=== PATIENT | female | born 1960 | race Caucasian/White ===

== ENCOUNTER 2017-04-16 16:58 | Emergency (ER) | payer SELFPAY ==
[2017-04-16 17:06] VITALS: BP 151/96
--- NOTE | 2017-04-16 18:47 | EDM.PDOC ---
ED HPI GENERAL MEDICAL PROBLEM - General Chief Complaint: Lower Extremity Injury/Pain Stated Complaint: LT ANKLE INJURY Time Seen by Provider: 04/16/17 17:47 Source of Information: Reports: Patient History Limitations: Reports: No Limitations - History of Present Illness INITIAL COMMENTS - FREE TEXT/NARRATIVE: 56 year old female present for evaluation and treatment of an injury to the left ankle. Patient reports she fell onto an inverted left ankle last night. She is not able to bear weight on the ankle. Reports pain, bruising and swelling to the left ankle. Reports decreased range of motion due to pain. No numbness or tingling. She has been icing, resting, and using OTC pain relievers for her symptoms. Left Ankle Pain Score (Numeric/FACES): 9 - Related Data Allergies Allergy/AdvReac Type Severity Reaction Status Date / Time diphenhydramine HCl Allergy Nervousness Verified 04/16/17 17:06 [From Benadryl] metoclopramide HCl Allergy throat Verified 04/16/17 17:06 [From Reglan] swelling Past Medical History - Past Health History Medical/Surgical History: Denies Medical/Surgical History - Past Surgical History Female Surgical History: Reports: Hysterectomy Social & Family History - Tobacco Use Smoking Status *Q: Never Smoker Second Hand Smoke Exposure: No - Alcohol Use Days Per Week of Alcohol Use: 4 Number of Drinks Per Day: 1 Total Drinks Per Week: 4 - Recreational Drug Use Recreational Drug Use: No Review of Systems - Review of Systems Review Of Systems: See Below Musculoskeletal: Reports: Joint Pain (left ankle), Joint Swelling (left ankle) Skin: Reports: Bruising (left ankle). Denies: Wound Neurological: Reports: Difficulty Walking. Denies: Numbness, Tingling ED EXAM, GENERAL - Physical Exam Exam: See Below Exam Limited By: No Limitations General Appearance: Alert, WD/WN, No Apparent Distress Respiratory/Chest: No Respiratory Distress Cardiovascular: Normal Peripheral Pulses, Regular Rate, Rhythm Peripheral Pulses: 3+: Posterior Tibial (L), Posterior Tibial (R), Dorsalis Pedis (L), Dorsalis Pedis (R) Extremities: Joint Swelling (left lateral malleolus), Limited Range of Motion ( pain with inversion, eversion, dorsiflexion and plantarflexion), Other ( tenderness to palpation of the left ankle both proximal and distal to the lateral malleolus) Neurological: Alert, Oriented, Normal Cognition Psychiatric: Normal Affect, Normal Mood Skin Exam: Warm, Dry, Ecchymosis (approximately 7cm in diameter ecchymosis to the left lateral ankle, roximal to the malleolus) Course - Vital Signs Last Recorded V/S: Last Vital Signs Temp 37.2 C 04/16/17 17:03 Pulse 94 04/16/17 17:03 Resp 16 04/16/17 17:03 BP 151/96 H 04/16/17 17:03 Pulse Ox 96 04/16/17 17:03 - Radiology Interpretation Free Text/Narrative:: left ankle xray shows soft tissue swelling, no acute fractures or dislocations - Re-Assessments/Exams Free Text/Narrative Re-Assessment/Exam: 04/16/17 18:41 I reviewed the xrays with the patient. She does not have insurance and is very concerned about costs. She has crutches at home. Decided to treat conservatively and if the ankle does not heel she will follow up with family med. Discharge instructions as documented. Departure - Departure Time of Disposition: 18:47 Disposition: Home, Self-Care 01 Condition: Fair Clinical Impression: Ankle sprain Qualifiers: Encounter type: initial encounter Involved ligament of ankle: calcaneofibular ligament Laterality: left Qualified Code(s): S93.412A - Sprain of calcaneofibular ligament of left ankle, initial encounter - Discharge Information Instructions: Ankle Sprain, [id number] Referrals: PCP,None [Primary Care Provider] - Forms: ED Department Discharge Additional Instructions: Rx for norco 5-325mg tabs 1-2 tabs PO every 4-6 hours prn pain given through instymeds. Ice the ankle 3 to 5 times a day for 10-15 minutes. Use the crutches and an Yoel bandage. I recommend you off the ankle for the next week. Follow up with family medicine if your symptoms have not improved in one week. Please call [phone] to schedule the provider at the same [facility]. Recommend Jennie Sung. [id number] ibuprofen as needed for pain relief. [place] 1-2 tabs every 4-6 hours as needed for severe pain not relieved by ibuprofen. Do not drive or operate machinery within 12 hours of taking the [place]. [place] can be habit- forming, recommend you take as few these as needed to control your pain. Return to the ER if your symptoms change or worsen.
--- NOTE | 2017-04-17 10:53 | CR ---
Left ankle: Four views of the left ankle were obtained. Comparison: No previous ankle study. Ankle mortise is symmetric. Small plantar spur is seen. Minimal calcification within the distal Achilles tendon is seen near the attachment to the calcaneus. No acute fracture, dislocation or other bony abnormality is seen. Mild soft tissue swelling is identified. Impression: 1. Soft tissue swelling. Nothing acute is otherwise appreciated. 2. Incidental calcaneal spurs. Diagnostic code #2
== END 2017-04-16 18:55 | disposition home or self-care (01) ==
LOC: JD.ED 16:58
DX: S93.412A Sprain of calcaneofibular ligament of left ankle, initial encounter (principal); Z90.710 Acquired absence of both cervix and uterus; Z88.8 Allergy status to other drugs, medicaments and biological substances; W01.0XXA Fall on same level from slipping, tripping and stumbling without subsequent striking against object, initial encounter
CPT/HCPCS: 73610-26-LT; 73610-LT; 99282; 99284

== ENCOUNTER 2017-06-15 12:34 | Emergency (ER) | payer SELFPAY ==
[2017-06-15 12:43] VITALS: BP 97/66
[2017-06-15] MEDS ORDERED: Ketorolac 10 MG Tab PO ONE (13:22)
--- NOTE | 2017-06-15 13:23 | EDM.PDOC ---
ED HPI GENERAL MEDICAL PROBLEM - General Chief Complaint: Gastrointestinal Problem Stated Complaint: Abdominal pain Time Seen by Provider: 06/15/17 13:00 Source of Information: Reports: Patient, RN Notes Reviewed History Limitations: Reports: No Limitations - History of Present Illness INITIAL COMMENTS - FREE TEXT/NARRATIVE: 56 year old female presents to the ED with complaints of bloating and left sided abdominal pain. She has had the symptoms for approximately 2 months. The symptoms have worsened over the past couple days. She has a history of ulcerative colitis and diverticulitis. She denies nausea or vomiting. She reports that her bowel movements are small and thin. Her last "good" bowel movement was a few days ago. Her appetite is fair. She has seen a regional engineer in the past but is not currently established with GI. Her PCP was Dr. Carter but he has since left and she has not established with anyone new. Abdomen Pain Score (Numeric/FACES): 6 - Related Data Allergies Allergy/AdvReac Type Severity Reaction Status Date / Time diphenhydramine HCl Allergy Nervousness Verified 06/15/17 12:43 [From Benadryl] metoclopramide HCl Allergy throat Verified 06/15/17 12:43 [From Reglan] swelling Home Meds: Home Meds Ciprofloxacin [IJD: Ciprofloxacin HCl] 500 mg PO BID #14 tab 06/15/17 [Rx] Clindamycin HCl 300 mg PO Q6H #28 capsule 06/15/17 [Rx] Dicyclomine [Bentyl] 20 mg PO ASDIRECTED PRN 06/15/17 [History] predniSONE [Prednisone] See Taper PO DAILY #30 tablet 06/15/17 [Rx] traMADol [Ultram] 50 mg PO Q6H PRN #10 tablet 06/15/17 [Rx] Past Medical History - Past Health History Medical/Surgical History: Denies Medical/Surgical History Gastrointestinal History: Reports: Other (See Below) Other Gastrointestinal History: Ulcerative colitis - Past Surgical History Female Surgical History: Reports: Hysterectomy Social & Family History - Tobacco Use Smoking Status *Q: Former Smoker Used Tobacco, but Quit: Yes Month Tobacco Last Used: 20 years ago Second Hand Smoke Exposure: No - Caffeine Use Caffeine Use: Reports: Coffee - Alcohol Use Days Per Week of Alcohol Use: 4 Number of Drinks Per Day: 1 Total Drinks Per Week: 4 - Recreational Drug Use Recreational Drug Use: No ED ROS GENERAL - Review of Systems Review Of Systems: See Below Constitutional: Reports: Chills. Denies: Fever, Diaphoresis Respiratory: Reports: No Symptoms. Denies: Shortness of Breath Cardiovascular: Reports: No Symptoms. Denies: Chest Pain GI/Abdominal: Reports: Abdominal Pain, Constipation. Denies: Black Stool, Bloody Stool, Diarrhea, Nausea, Vomiting : Reports: No Symptoms. Denies: Dysuria, Flank Pain, Frequency ED EXAM, GI/ABD - Physical Exam Exam: See Below Exam Limited By: No Limitations General Appearance: Alert, No Apparent Distress, Obese Respiratory/Chest: No Respiratory Distress, Lungs Clear, Normal Breath Sounds, No Accessory Muscle Use, Chest Non-Tender Cardiovascular: Normal Peripheral Pulses, Regular Rate, Rhythm, No Murmur GI/Abdominal Exam: Normal Bowel Sounds, Soft, No Organomegaly, Distended (mild ) , Tender (LLQ and LUQ. ). No: Guarding, Rigid, Rebound, Mass Neurological: Alert, Oriented, Normal Cognition Skin Exam: Warm, Dry, Intact Course - Vital Signs Last Recorded V/S: Last Vital Signs Temp 97 F 06/15/17 12:40 Pulse 93 06/15/17 12:40 Resp 19 06/15/17 12:40 BP 97/66 06/15/17 12:40 Pulse Ox 96 06/15/17 12:40 - Orders/Labs/Meds Labs: Laboratory Tests 06/15/17 06/15/17 06/15/17 Range/Units 13:33 13:33 14:45 WBC 10.27 H (3.98-10.04) K/mm3 RBC 4.58 (3.98-5.22) M/mm3 Hgb 13.9 (11.2-15.7) gm/L Hct 41.7 (34.1-44.9) % MCV 91.0 (79.4-94.8) fl MCH 30.3 (25.6-32.2) pg MCHC 33.3 (32.2-35.5) g/dl RDW Std Deviation 47.0 H (36.4-46.3) fL Plt Count 178 L (182-369) K/mm3 MPV 11.5 (9.4-12.3) fl Neutrophils % (Manual) 82 H (40-60) % Band Neutrophils % 0 (0-10) % Lymphocytes % (Manual) 13 L (20-40) % Atypical Lymphs % 0 % Monocytes % (Manual) 3 (2-10) % Eosinophils % (Manual) 2 (0.7-5.8) % Basophils % (Manual) 0 L (0.1-1.2) Platelet Estimate Adequate RBC Morph Comment Normal Sodium 136 (136-145) mEq/L Potassium 3.8 (3.5-5.1) mEq/L Chloride 102 (98-107) mEq/L Carbon Dioxide 29 (21-32) mEq/L Anion Gap 8.8 (5-15) BUN 12 (7-18) mg/dL Creatinine 0.8 (0.55-1.02) mg/dL Est Cr Clr Drug Dosing 67.80 mL/min Estimated GFR (MDRD) > 60 (>60) mL/min BUN/Creatinine Ratio 15.0 (14-18) Glucose 111 H (74-106) mg/dL Calcium 9.0 (8.5-10.1) mg/dL Total Bilirubin 0.7 (0.2-1.0) mg/dL AST 10 L (15-37) U/L ALT 27 (14-59) U/L Alkaline Phosphatase 82 (46-116) U/L C-Reactive Protein 20.2 H* (<1.0) mg/dL Total Protein 7.6 (6.4-8.2) g/dl Albumin 3.6 (3.4-5.0) g/dl Globulin 4.0 gm/dL Albumin/Globulin Ratio 0.9 L (1-2) Urine Color Yellow (Yellow) Urine Appearance Clear (Clear) Urine pH 6.0 (5.0-8.0) Ur Specific Coin 1.020 (1.005-1.030) Urine Protein Negative (Negative) Urine Glucose (UA) Negative (Negative) Urine Ketones Negative (Negative) Urine Occult Blood Trace-lysed H (Negative) Urine Nitrite Negative (Negative) Urine Bilirubin Negative (Negative) Urine Urobilinogen 0.2 (0.2-1.0) Ur Leukocyte Esterase Negative (Negative) Urine RBC 0-5 (0-5) /hpf Urine WBC 0-5 (0-5) /hpf Ur Epithelial Cells 0-5 (0-5) /hpf Urine Bacteria Few (FEW) /hpf Urine Mucus Not seen (FEW) /hpf Meds: Medications Discontinued Medications Generic Name Dose Route Start Last Admin Trade Name Ragini PRN Reason Stop Dose Admin Acetaminophen 975 mg 06/15/17 14:48 06/15/17 14:52 Tylenol PO 06/15/17 14:49 975 mg NOW ONE Administration Ketorolac Tromethamine 10 mg 06/15/17 13:22 06/15/17 13:29 Toradol PO 06/15/17 13:23 10 mg ONETIME ONE Administration - Re-Assessments/Exams Free Text/Narrative Re-Assessment/Exam: Patient's history of diverticulitis AND ulcerative colitis makes diagnosis difficult. I offered CT scan of the abdomen but patient declined. She does not have insurance and is concerned about cost. We discussed risk and benefits. Shared decision making utilized and patient would prefer to avoid CT scan at this time. She is agreeable to labs. Offered IV for symptom management but she also refused IV. Will treat with Toradol PO for pain. The toradol offered significant improvement in pain. CBC came back with mild elevated WBC with no bands. CMP is normal. CRP is elevated at 20. UA negative. Discussed with Dr. Evans, he agrees with treatment with prednisone and antibiotics to treat both UC and diverticulitis. Clinically the patient appears to have diverticulitis but cannot be certain without CT. The patient says she does not tolerated Flagyl as it causes severe diarrhea. Dr. evans recommends Clindamycin in the place of Flagyl. Patient will be discharged. She was educated on return precautions. Will refer to Dr. Lagos and instructed to f/u next week for recheck. She was encouraged to return to ER with any new or worsening symptoms. Departure - Departure Time of Disposition: 15:59 Disposition: Home, Self-Care 01 Condition: Good Clinical Impression: Abdominal pain, History of ulcerative colitis, Hx of diverticulitis of colon - Discharge Information Prescriptions: Ciprofloxacin [IJD: Ciprofloxacin HCl] 500 mg PO BID #14 tab Clindamycin HCl 300 mg PO Q6H #28 capsule predniSONE [Prednisone] See Taper PO DAILY #30 tablet traMADol [Ultram] 50 mg PO Q6H PRN #10 tablet PRN Reason: Pain (Moderate 4-6) Instructions: Ulcerative Colitis, Adult Referrals: Aayush Lagos [Physician] - Forms: ED Department Discharge Additional Instructions: Follow-up with Dr. Lagos next week. Call [phone] to schedule Return to ER with new or worsening symptoms Medications: Prednisone taper as prescribed Tramadol 1 tab every 6 hours as needed for pain Ciprofloxacin 500mg twice a day for 7 days Clindamycin 300mg every 6 hours for 7 days
[2017-06-15] MEDS ORDERED: Acetaminophen 325 MG Tab PO ONE (14:48)
== END 2017-06-15 16:15 | disposition home or self-care (01) ==
LOC: JD.ED 12:34
DX: R10.9 Unspecified abdominal pain (principal); Z87.19 Personal history of other diseases of the digestive system; Z88.6 Allergy status to analgesic agent; Z88.8 Allergy status to other drugs, medicaments and biological substances; Z79.899 Other long term (current) drug therapy; Z90.710 Acquired absence of both cervix and uterus; Z87.891 Personal history of nicotine dependence
CPT/HCPCS: 36415; 80053; 81001; 85025; 86140; 99284; A9270; 99283

== ENCOUNTER 2021-06-19 02:47 | Emergency (ER) | payer SELFPAY ==
[2021-06-19] MEDS ORDERED: Sodium Chloride 0.9% 1,000 ML IV ONE (03:12)
[2021-06-19] MEDS ORDERED: predniSONE 20 MG Tab PO ONE (03:12)
[2021-06-19] MEDS ORDERED: Ketorolac 30 MG/ML SDV IVPUSH ONE (03:12)
[2021-06-19] MEDS ORDERED: Albuterol/Ipratropium 3.0-0.5 MG/3 ML Neb Soln NEB ONE (03:12)
[2021-06-19] MEDS ORDERED: Azithromycin 250 MG Tab PO ONE (03:12)
[2021-06-19] MEDS ORDERED: EPINEPHrine 1 MG/ML SDV IM PRN (04:33)
[2021-06-19] MEDS ORDERED: diphenhydrAMINE 50 MG/ML SDV IVPUSH PRN (04:33)
[2021-06-19] MEDS ORDERED: Famotidine 20 MG/2 ML SDV IVPUSH PRN (04:33)
[2021-06-19] MEDS ORDERED: methylPREDNISolone Sodium Succinate 125 MG/2 ML SDV IVPUSH PRN (04:33)
[2021-06-19] MEDS ORDERED: Sodium Chloride 0.9% 10 ML Syringe FLUSH SCH (04:45)
--- NOTE | 2021-06-19 05:24 | EDM.PDOC ---
ED HPI GENERAL MEDICAL PROBLEM - General Chief Complaint: Respiratory Problem Stated Complaint: SOB/CONGESTION/FEVER Time Seen by Provider: 06/19/21 02:51 Source of Information: Reports: Patient History Limitations: Reports: No Limitations - History of Present Illness INITIAL COMMENTS - FREE TEXT/NARRATIVE: Patient is a 60-year-old female who is complaining of having fever and chills, dry mouth, nonproductive cough and feeling ill for the past week. Patient has change in her sense of taste and smell. She is feeling increasingly tired and is starting to have myalgias. Patient is not vaccinated against Covid. She is not a cigarette smoker. She denies any vomiting or diarrhea. She is complaining of having a frontal headache. She is not taking anything for symptoms today. Denies any dysuria or hematuria. Denies any bloody or tarry stools. Duration: Week(s): (1), Getting Worse Severity: Moderate Generalized Pain Score (Numeric/FACES): 9 - Related Data Allergies Allergy/AdvReac Type Severity Reaction Status Date / Time diphenhydramine HCl Allergy Nervousness Verified 06/19/21 02:56 [From Benadryl] metoclopramide HCl Allergy throat Verified 06/19/21 02:56 [From Reglan] swelling Home Meds: Home Meds Albuterol [Proventil Neb Soln] 0.63 mg NEB Q6H PRN #20 dose 06/19/21 [Rx] Azithromycin 250 mg PO DAILY #6 tablet 06/19/21 [Rx] Mesalamine 1.2 gm PO BID 06/19/21 [History] predniSONE [Prednisone] 20 mg PO DAILY #5 tablet 06/19/21 [Rx] Past Medical History - Past Health History Medical/Surgical History: Denies Medical/Surgical History Gastrointestinal History: Reports: Other (See Below) Other Gastrointestinal History: Ulcerative colitis, diverticulitis - Past Surgical History Female Surgical History: Reports: Hysterectomy Social & Family History - Tobacco Use Tobacco Use Status *Q: Never Tobacco User Second Hand Smoke Exposure: No - Caffeine Use Caffeine Use: Reports: Coffee - Recreational Drug Use Recreational Drug Use: No ED ROS GENERAL - Review of Systems Review Of Systems: Comprehensive ROS is negative, except as noted in HPI. Constitutional: Reports: Fever, Chills, Malaise, Fatigue, Decreased Appetite Respiratory: Reports: Shortness of Breath, Cough. Denies: Sputum Cardiovascular: Reports: No Symptoms GI/Abdominal: Reports: Anorexia : Reports: No Symptoms Musculoskeletal: Reports: Muscle Pain ED EXAM, GENERAL - Physical Exam Exam: See Below Exam Limited By: No Limitations General Appearance: Alert, Mild Distress Head: Normocephalic Neck: Normal Inspection, Supple Respiratory/Chest: No Respiratory Distress, Lungs Clear, Normal Breath Sounds, No Accessory Muscle Use Cardiovascular: Tachycardia GI/Abdominal: Normal Bowel Sounds, Soft, Non-Tender, No Distention Back Exam: Normal Inspection Extremities: Normal Inspection Neurological: Alert, Normal Cognition Psychiatric: Normal Affect Skin Exam: Warm, Dry Course - Vital Signs Text/Narrative:: Patient's lab work is unremarkable. She is positive for COVID-19. We have given her a dose of Regeneron here. I have started her on prednisone. She is also started on Zithromax. Chest x-ray shows no pneumonia. She is feeling better with albuterol DuoNeb treatment. She has a nebulizer at home and I will her albuterol for that. She has a home pulse ox and knows to return if she is having worsening symptoms or her her pulse ox is less than 90. Last Recorded V/S: Last Vital Signs Temp 98.1 F 06/19/21 02:55 Pulse 114 H 06/19/21 02:55 Resp 25 H 06/19/21 02:55 BP 177/125 H 06/19/21 02:55 Pulse Ox 91 L 06/19/21 03:21 - Orders/Labs/Meds Orders: Active Orders 24 hr Category Date Time Status RT Aerosol Therapy [RC] ASDIRECTED Care 06/19/21 03:14 Active Vital Signs [RC] Q15M Care 06/19/21 04:33 Active Chest 1V Frontal [CR] Stat Exams 06/19/21 03:12 Taken EPINEPHrine [Adrenalin] Med 06/19/21 04:33 Active 0.3 mg IM ONETIME PRN Famotidine [Pepcid] Med 06/19/21 04:33 Active 20 mg IVPUSH ONETIME PRN Sodium Chloride 0.9% [Saline Flush] Med 06/19/21 04:45 Active 30 ml FLUSH ASDIRECTED diphenhydrAMINE [Benadryl] Med 06/19/21 04:33 Active 50 mg IVPUSH ONETIME PRN methylPREDNISolone Sod Succ [Solu-MEDROL] Med 06/19/21 04:33 Active 125 mg IVPUSH ONETIME PRN Medication Orders Diphenhydramine HCl (Diphenhydramine 50 Mg/Ml Sdv) 50 mg IVPUSH ONETIME PRN PRN Reason: hypersensitivity reaction Epinephrine HCl (Epinephrine 1 Mg/Ml Sdv) 0.3 mg IM ONETIME PRN PRN Reason: hypersensitivity reaction Famotidine (Famotidine 20 Mg/2 Ml Sdv) 20 mg IVPUSH ONETIME PRN PRN Reason: hypersensitivity reaction Methylprednisolone Sodium Succinate (Methylprednisolone Sodium Succinate 125 Mg/2 Ml Sdv) 125 mg IVPUSH ONETIME PRN PRN Reason: hypersensitivity reaction Sodium Chloride (Sodium Chloride 0.9% 10 Ml Syringe) 30 ml FLUSH ASDIRECTED [facility] Labs: Laboratory Tests 06/19/21 06/19/21 06/19/21 Range/Units 03:05 03:05 03:11 WBC 6.07 (3.98-10.04) K/mm3 RBC 4.64 (3.98-5.22) M/mm3 Hgb 14.0 (11.2-15.7) gm/dl Hct 41.7 (34.1-44.9) % MCV 89.9 (79.4-94.8) fl MCH 30.2 (25.6-32.2) pg MCHC 33.6 (32.2-35.5) g/dl RDW Std Deviation 49.0 H (36.4-46.3) fL Plt Count 170 L D (182-369) K/mm3 MPV 11.1 (9.4-12.3) fl Neutrophils % (Manual) 77 H (40-60) % Band Neutrophils % 0 (0-10) % Lymphocytes % (Manual) 13 L (20-40) % Atypical Lymphs % 0 % Monocytes % (Manual) 10 (2-10) % Eosinophils % (Manual) 0 L (0.7-5.8) % Basophils % (Manual) 0 L (0.1-1.2) Platelet Estimate Adequate RBC Morph Comment Normal Sodium 132 L (136-145) mEq/L Potassium 3.6 (3.5-5.1) mEq/L Chloride 99 (98-107) mEq/L Carbon Dioxide 24 (21-32) mEq/L Anion Gap 12.6 (5-15) BUN 13 (7-18) mg/dL Creatinine 0.6 (0.55-1.02) mg/dL Est Cr Clr Drug Dosing 86.10 mL/min Estimated GFR (MDRD) > 60 (>60) mL/min BUN/Creatinine Ratio 21.7 H (14-18) Glucose 165 H (70-99) mg/dL Calcium 8.2 L (8.5-10.1) mg/dL Total Bilirubin 0.4 (0.2-1.0) mg/dL AST 24 (15-37) U/L ALT 54 (14-59) U/L Alkaline Phosphatase 87 (46-116) U/L Total Protein 7.6 (6.4-8.2) g/dl Albumin 3.7 (3.4-5.0) g/dl Globulin 3.9 gm/dL Albumin/Globulin Ratio 1.0 (1-2) SARS-CoV-2 RNA (JESSE) Positive H (NEGATIVE) Meds: Medications Generic Name Dose Route Start Last Admin Trade Name Freq PRN Reason Stop Dose Admin Diphenhydramine HCl 50 mg 06/19/21 04:33 Diphenhydramine 50 Mg/Ml Sdv IVPUSH ONETIME PRN hypersensitivity reaction Epinephrine HCl 0.3 mg 06/19/21 04:33 Epinephrine 1 Mg/Ml Sdv IM ONETIME PRN hypersensitivity reaction Famotidine 20 mg 06/19/21 04:33 Famotidine 20 Mg/2 Ml Sdv IVPUSH ONETIME PRN hypersensitivity reaction Methylprednisolone Sodium Succinate 125 mg 06/19/21 04:33 Methylprednisolone Sodium Succinate 125 Mg/2 Ml Sdv IVPUSH ONETIME PRN hypersensitivity reaction Sodium Chloride 30 ml 06/19/21 04:45 Sodium Chloride 0.9% 10 Ml Syringe FLUSH ASDIRECTED MARLEE Discontinued Medications Generic Name Dose Route Start Last Admin Trade Name Freq PRN Reason Stop Dose Admin Albuterol/Ipratropium 3 ml 06/19/21 03:12 06/19/21 03:21 Albuterol/Ipratropium 3.0-0.5 Mg/3 Ml Neb Soln NEB 06/19/21 03:13 3 ml ONETIME ONE Administration Azithromycin 250 mg 06/19/21 03:12 06/19/21 03:31 Azithromycin 250 Mg Tab PO 06/19/21 03:13 250 mg ONETIME ONE Administration Sodium Chloride 1,000 mls @ 1,000 mls/hr 06/19/21 03:12 06/19/21 03:31 Normal Saline IV 06/19/21 04:11 1,000 mls/hr ONETIME ONE Administration CASIRIVIMAB/IMDEVIMAB 10 ml/ 110 mls @ 220 mls/hr 06/19/21 04:33 06/19/21 05:03 Sodium Chloride IV 06/19/21 05:02 220 mls/hr ONETIME ONE Administration Ketorolac Tromethamine 30 mg 06/19/21 03:12 06/19/21 03:31 Ketorolac 30 Mg/Ml Sdv IVPUSH 06/19/21 03:13 30 mg ONETIME ONE Administration Prednisone 40 mg 06/19/21 03:12 06/19/21 03:31 Prednisone 20 Mg Tab PO 06/19/21 03:13 40 mg ONETIME ONE Administration Departure - Departure Time of Disposition: 05:29 Disposition: Home, Self-Care 01 Condition: Fair Clinical Impression: COVID-19 - Discharge Information Instructions: COVID-19 Vaccine Information, COVID-19 Frequently Asked Questions, COVID-19: How to Protect Yourself and Others - [facility] [place] Referrals: Luis Angel Crowder MD [Primary Care Provider] - Forms: ED Department Discharge Additional Instructions: Medicines as prescribed. Return to ER if more hypoxic or more dyspneic. See PCP if symptoms continue. Once better get vaccinated for COVID-19. Sepsis Event Note (ED) - Focused Exam Vital Signs: Vital Signs Temp Pulse Resp BP Pulse Ox Pulse Ox 06/19/21 03:21 91 L 06/19/21 02:55 98.1 F 114 H 25 H 177/125 H 92 L - My Orders Last 24 Hours: My Active Orders 06/19/21 03:12 Chest 1V Frontal [CR] Stat 06/19/21 03:14 RT Aerosol Therapy [RC] ASDIRECTED 06/19/21 04:33 Vital Signs [RC] Q15M EPINEPHrine [Adrenalin] 0.3 mg IM ONETIME PRN Famotidine [Pepcid] 20 mg IVPUSH ONETIME PRN diphenhydrAMINE [Benadryl] 50 mg IVPUSH ONETIME PRN methylPREDNISolone Sod Succ [Solu-MEDROL] 125 mg IVPUSH ONETIME PRN 06/19/21 04:45 Sodium Chloride 0.9% [Saline Flush] 30 ml FLUSH ASDIRECTED - Assessment/Plan Last 24 Hours: My Active Orders 06/19/21 03:12 Chest 1V Frontal [CR] Stat 06/19/21 03:14 RT Aerosol Therapy [RC] ASDIRECTED 06/19/21 04:33 Vital Signs [RC] Q15M EPINEPHrine [Adrenalin] 0.3 mg IM ONETIME PRN Famotidine [Pepcid] 20 mg IVPUSH ONETIME PRN diphenhydrAMINE [Benadryl] 50 mg IVPUSH ONETIME PRN methylPREDNISolone Sod Succ [Solu-MEDROL] 125 mg IVPUSH ONETIME PRN 06/19/21 04:45 Sodium Chloride 0.9% [Saline Flush] 30 ml FLUSH ASDIRECTED
[2021-06-19 06:40] VITALS: BP 160/78; PULSE 93
--- NOTE | 2021-06-19 07:48 | CR ---
Chest: Portable view of the chest was obtained. Comparison: Prior chest x-ray of 01/12/15. Slight linear density is noted within the right lung base. Minimal linear density is seen within the lateral left costophrenic angle. Lungs otherwise are clear. Heart size and mediastinum are within normal limits. Bony structures show nothing acute. Impression: 1. Linear densities within the right lung base as well as within the lateral left costophrenic angle. Findings are most likely due to areas of atelectasis. If patient remains symptomatic, follow-up chest x-ray could be obtained in 24-48 hours. 2. Nothing acute is otherwise seen. Diagnostic code #2
== END 2021-06-19 09:10 | disposition home or self-care (01) ==
LOC: JD.ED 02:47
DX: U07.1 COVID-19 (principal); Z88.8 Allergy status to other drugs, medicaments and biological substances
CPT/HCPCS: 36415; 71045; 80053; 85007; 85027; 87635; 94640; 96374; 99285; A9270; J1885; J7030; J7512; M0243; Q0243; 99283; J7620-GY; U0002

== ENCOUNTER 2021-06-23 02:21 | Emergency (ER) | payer SELFPAY ==
--- NOTE | 2021-06-23 02:52 | EDM.PDOC ---
ED HPI GENERAL MEDICAL PROBLEM - General Chief Complaint: Respiratory Problem Stated Complaint: COVID+/LOW O2 Time Seen by Provider: 06/23/21 02:40 - History of Present Illness INITIAL COMMENTS - FREE TEXT/NARRATIVE: 60-year-old female returns to the emergency room with concerns over her Covid illness. Patient awoke this evening and found her O2 saturation to be 88 to 89% and then it came back up. The patient is on 2 L of oxygen at home and this is a normal state for her. Has not needed to be adjusted upwards. The patient is keeping a close eye on her pulse oximetry using her little finger probe. And she used it and it read 88 to 89%. She became concerned about this and came in for evaluation. She has no new symptoms her biggest complaint is the headache that she has had for as long as she has had the illness. No other new complaints at this time she does state however that she is tired of being sick. But she is grateful she is not getting any worse. Headache Pain Score (Numeric/FACES): 6 - Related Data Allergies Allergy/AdvReac Type Severity Reaction Status Date / Time diphenhydramine HCl Allergy Nervousness Verified 06/19/21 02:56 [From Benadryl] metoclopramide HCl Allergy throat Verified 06/19/21 02:56 [From Reglan] swelling Home Meds: Home Meds Albuterol [Proventil Neb Soln] 0.63 mg NEB Q6H PRN #20 dose 06/19/21 [Rx] Azithromycin 250 mg PO DAILY #6 tablet 06/19/21 [Rx] Mesalamine 1.2 gm PO BID 06/19/21 [History] predniSONE [Prednisone] 20 mg PO DAILY #5 tablet 06/19/21 [Rx] Past Medical History - Past Health History Medical/Surgical History: Denies Medical/Surgical History Gastrointestinal History: Reports: Other (See Below) Other Gastrointestinal History: Ulcerative colitis, diverticulitis Endocrine/Metabolic History: Reports: Obesity/BMI 30+ - Infectious Disease History Infectious Disease History: Reports: Novel Coronavirus - Past Surgical History Female Surgical History: Reports: Hysterectomy Social & Family History - Tobacco Use Tobacco Use Status *Q: Never Tobacco User - Caffeine Use Caffeine Use: Reports: Coffee - Recreational Drug Use Recreational Drug Use: No ED ROS GENERAL - Review of Systems Review Of Systems: See Below Constitutional: Reports: Malaise, Weakness, Fatigue. Denies: Fever, Chills HEENT: Reports: No Symptoms, Vertigo Cardiovascular: Reports: No Symptoms GI/Abdominal: Reports: No Symptoms : Reports: No Symptoms Skin: Reports: No Symptoms Neurological: Reports: Headache ED EXAM, GENERAL - Physical Exam Exam: See Below Exam Limited By: No Limitations General Appearance: Alert, No Apparent Distress, Other (She is on supplemental oxygen 2 L this is her baseline) Eye Exam: Bilateral Eye: Normal Inspection Ears: Normal External Exam, Normal Canal, Hearing Grossly Normal, Normal TMs Nose: Normal Inspection, Normal Mucosa, No Blood Throat/Mouth: Normal Inspection, Normal Lips, Normal Teeth, Normal Gums, Normal Oropharynx, Normal Voice, No Airway Compromise Head: Atraumatic, Normocephalic Neck: Normal Inspection, Supple, Non-Tender, Full Range of Motion. No: Lymphadenopathy (L), Lymphadenopathy (R) Respiratory/Chest: No Respiratory Distress, Normal Breath Sounds, Crackles (She has a few crackles noted in the lung bases) Cardiovascular: Regular Rate, Rhythm, No Edema, No Murmur GI/Abdominal: Normal Bowel Sounds, Soft, Non-Tender Back Exam: Normal Inspection. No: CVA Tenderness (L), CVA Tenderness (R) Extremities: Normal Inspection Neurological: Alert, Oriented, Normal Cognition Course - Vital Signs Last Recorded V/S: Last Vital Signs Temp 36.0 C L 06/23/21 02:28 Pulse 89 06/23/21 03:00 Resp 20 06/23/21 03:00 BP 164/92 H 06/23/21 03:00 Pulse Ox 95 06/23/21 03:00 - Re-Assessments/Exams Free Text/Narrative Re-Assessment/Exam: 06/23/21 03:45 Patient's condition has not deteriorated. It is the same as has been the last couple of days. She is not getting worse. Patient did bring in her O2 monitor and from comparing it to ours it seems to read about 2% less than ours do. I have tried this different ways on her with the same result. At this time I do not think further work-up is indicated. Patient agrees. We will discharge home Departure - Departure Time of Disposition: 03:47 Disposition: Home, Self-Care 01 Clinical Impression: COVID-19 - Discharge Information Referrals: Luis Angel Crowder MD [Primary Care Provider] - Forms: ED Department Discharge Additional Instructions: Return to the emergency room with any questions problems or worsening symptoms. Tylenol as needed for discomfort. Keep doing what you are doing. Keep an eye on your oxygen saturation but remember your little monitor tends to read less then ours does here. Sepsis Event Note (ED) - Evaluation Sepsis Screening Result: No Definite Risk - Focused Exam Vital Signs: Vital Signs Temp Pulse Resp BP Pulse Ox 06/23/21 03:00 89 20 164/92 H 95 06/23/21 02:39 93 L 06/23/21 02:28 36.0 C L 110 H 18 156/100 H 92 L
[2021-06-23 03:01] VITALS: BP 164/92; PULSE 89
[2021-06-23] MEDS ORDERED: Acetaminophen 325 MG Tab PO ONE (03:59)
== END 2021-06-23 04:05 | disposition home or self-care (01) ==
LOC: JD.ED 02:21
DX: U07.1 COVID-19 (principal); E66.9 Obesity, unspecified; Z88.8 Allergy status to other drugs, medicaments and biological substances
CPT/HCPCS: 99283; A9270

== ENCOUNTER 2022-03-19 08:02 | Emergency (ER) | payer SELFPAY ==
[2022-03-19] MEDS ORDERED: Meclizine 12.5 MG Tab PO ONE (08:51)
[2022-03-19] MEDS ORDERED: Lactated Ringers 1,000 ML IV ONE (08:51)
[2022-03-19] MEDS ORDERED: Ondansetron 4 MG/2 ML SDV IVPUSH ONE (08:51)
[2022-03-19] MEDS ORDERED: Acetaminophen 325 MG Tab PO ONE (09:19)
[2022-03-19 11:46] VITALS: BP 168/89; PULSE 86
== END 2022-03-19 11:15 | disposition home or self-care (01) ==
LOC: JD.ED 08:02
DX: R42 Dizziness and giddiness (principal); I10 Essential (primary) hypertension; E66.9 Obesity, unspecified; Z68.30 Body mass index [BMI] 30.0-30.9, adult; Z88.8 Allergy status to other drugs, medicaments and biological substances; Z86.16 Personal history of COVID-19
CPT/HCPCS: 36415; 70450; 80053; 83735; 85025; 93005; 96361; 96374; 99284; A9270; J2405; J7120

== ENCOUNTER 2022-06-17 23:29 | Emergency (ER) | payer SELFPAY ==
[2022-06-18] MEDS ORDERED: Orphenadrine 100 MG Tab.ER PO STA (00:27)
[2022-06-18] MEDS ORDERED: Ibuprofen 600 MG Tab PO ONE (00:27)
[2022-06-18 00:56] VITALS: BP 150/99; PULSE 86
== END 2022-06-18 00:56 | disposition home or self-care (01) ==
LOC: JD.ED 23:29
DX: R07.89 Other chest pain (principal); E66.9 Obesity, unspecified; Z68.38 Body mass index [BMI] 38.0-38.9, adult; Z88.8 Allergy status to other drugs, medicaments and biological substances; Z79.899 Other long term (current) drug therapy; Z86.16 Personal history of COVID-19; Z90.710 Acquired absence of both cervix and uterus; Z87.891 Personal history of nicotine dependence
CPT/HCPCS: 93005; 99284; A9270; 93010

== ENCOUNTER 2022-11-18 11:03 | Emergency (ER) | payer SELFPAY ==
[2022-11-18 11:29] VITALS: PULSE 90
[2022-11-18] MEDS ORDERED: Ondansetron 4 MG/2 ML SDV IVPUSH ONE (11:43)
[2022-11-18] MEDS ORDERED: Lactated Ringers 1,000 ML IV SCH (11:45)
[2022-11-18] MEDS ORDERED: Alum Hydrox/Mag Hydrox/Simeth 30 ML, Lidocaine 2% 15 ML PO ONE ×2 (12:10)
[2022-11-18 12:22] LABS: ESTIMATED GFR 83 mL/min (>60)
[2022-11-18 12:23] LABS: ACETAMINOPHEN 0 ug/mL (10-30)
[2022-11-18 12:29] VITALS: BP 151/94
[2022-11-18] MEDS ORDERED: Sucralfate Suspension 1 GM/10 ML Cup PO ONE (13:07)
[2022-11-18] MEDS ORDERED: Morphine 2 MG/ML SYRINGE IVPUSH ONE (13:44)
[2022-11-18] MEDS ORDERED: Acetaminophen 325 MG Tab PO ONE (13:54)
== END 2022-11-18 16:00 | disposition home or self-care (01) ==
LOC: JD.ED 11:03
DX: R51.9 Headache, unspecified (principal); I10 Essential (primary) hypertension; E66.9 Obesity, unspecified; Z68.38 Body mass index [BMI] 38.0-38.9, adult; Z88.8 Allergy status to other drugs, medicaments and biological substances
CPT/HCPCS: 36415; 70450; 71045; 80053; 80143; 83690; 83735; 84484; 85025; 85379; 85610; 85730; 93005; 96361; 96374; 99284; A9270; J2405; J7120; 93010

== ENCOUNTER 2025-05-28 18:41 | Emergency (ER) | payer SELFPAY ==
[2025-05-28] MEDS ORDERED: Sodium Chloride 0.9% 10 ML Syringe FLUSH PRN (18:48)
[2025-05-28 18:57] VITALS: BP 164/98; PULSE 102
[2025-05-28 19:22] LABS: APPEARANCE,URINE CLEAR (Clear); GLUCOSE,URINE NEGATIVE (Negative); OCCULT BLOOD,URINE NEGATIVE (Negative)
[2025-05-28] MEDS: Ondansetron 4 MG/2 ML SDV IVPUSH ONE (19:25)
[2025-05-28 19:38] LABS: BASOPHILS ABSOLUTE AUTO 0.0 K/mm3 (0.0-0.2); BASOPHILS PERCENT AUTO 0.3 % (0.0-1.0); EOSINOPHILS ABSOLUTE AUTO 0.2 K/mm3 (0.0-0.4); EOSINOPHILS PERCENT AUTO 1.7 % (0.0-6.0); IMMATURE GRAN ABSOLUTE AUTO 0.04 K/mm3 (0.00-0.05); IMMATURE GRAN PERCENT AUTO 0.4 % (0.0-0.4); LYMPHOCYTES ABSOLUTE AUTO 3.2 K/mm3 (1.0-4.8); LYMPHOCYTES PERCENT AUTO 34.7 % (24.0-44.0); MEAN PLATELET VOLUME 11.6 fl (9.4-12.3); MONOCYTES ABSOLUTE AUTO 1.0 K/mm3 (0.0-0.8); MONOCYTES PERCENT AUTO 10.3 % (0.0-8.0); NEUTROPHILS ABSOLUTE AUTO 4.8 K/mm3 (1.8-7.7); NEUTROPHILS PERCENT AUTO 52.6 % (41.0-71.0); NRBC ABSOLUTE 0.00 (0.00-0.02); NRBC PERCENT 0.0 % (0.0-0.2); PLATELET COUNT,PLT 195 K/mm3 (150-400); RED BLOOD CELL COUNT 4.69 M/mm3 (4.10-5.30); WHITE BLOOD CELL COUNT,WBC 9.20 K/mm3 (3.9-11.3)
[2025-05-28 19:56] LABS: INR 0.96
[2025-05-28 19:58] LABS: PTT,PARTIAL THROMBOPLSTIN TIME 26.9 SECONDS (21.7-31.4)
[2025-05-28 20:05] LABS: LACTIC ACID 0.7 mmol/L (0.4-2.0)
[2025-05-28 20:12] LABS: A/G RATIO 1.1 (1-2); ALANINE AMINOTRANSFERASE,ALT 26 U/L (14-59); ASPARTATE AMNIOTRANSFERASE,AST 12 U/L (15-37); BILIRUBIN TOTAL 0.5 mg/dL (0.2-1.0); BLOOD UREA NITROGEN,BUN 24 mg/dL (7-18); CARBON DIOXIDE,CO2 30 mEq/L (21-32); CHLORIDE,CL 104 mEq/L (98-107); CREATININE 0.7 mg/dL (0.55-1.02); ESTIMATED GFR 97 mL/min (>60); GLUCOSE RANDOM 125 mg/dL (70-99); POTASSIUM,K 4.3 mEq/L (3.5-5.1); PROTEIN TOTAL,TP 7.4 g/dl (6.4-8.2); SODIUM,NA 142 mEq/L (136-145); TROPONIN I HIGH SENSITIVITY 5 pg/mL (<=51)
== END 2025-05-28 21:00 | disposition home or self-care (01) ==
LOC: JD.ED 18:41
DX: R42 Dizziness and giddiness (principal); Z88.8 Allergy status to other drugs, medicaments and biological substances; Z79.899 Other long term (current) drug therapy; Z86.16 Personal history of COVID-19
CPT/HCPCS: 36415; 70450; 80053; 81003; 83605; 84484; 85025; 85610; 85730; 93005; 96374; 99284; J2405; 93010

== ENCOUNTER 2025-06-28 13:50 | Emergency (ER) | payer SELFPAY ==
[2025-06-28 15:33] LABS: APPEARANCE,URINE CLEAR (Clear); GLUCOSE,URINE NEGATIVE (Negative); OCCULT BLOOD,URINE NEGATIVE (Negative)
[2025-06-28 15:44] LABS: BUPRENORPHINE SCREEN,URINE NEGATIVE (CUTOFF=10); METHADONE SCREEN, URINE NEGATIVE (CUTOFF=200); METHAMPHETAMINES SCREEN, URINE NEGATIVE (CUTOFF=500); OXYCODONE SCREEN,URINE NEGATIVE (CUT0FF=100); THC SCREEN,URINE 20 NG/ML NEGATIVE (CUTOFF=50)
[2025-06-28 15:51] LABS: AMPHETAMINES SCREEN, URINE NEGATIVE (CUTOFF=500)
[2025-06-28 17:02] VITALS: BP 111/96; PULSE 77
== END 2025-06-28 17:05 | disposition home or self-care (01) ==
LOC: JD.ED 13:50
DX: K57.32 Diverticulitis of large intestine without perforation or abscess without bleeding (principal); E66.9 Obesity, unspecified; Z88.8 Allergy status to other drugs, medicaments and biological substances; Z79.899 Other long term (current) drug therapy; Z86.16 Personal history of COVID-19; Z90.710 Acquired absence of both cervix and uterus; Z68.35 Body mass index [BMI] 35.0-35.9, adult
CPT/HCPCS: 74176; 74176-26; 80306; 81003; 99284

== ENCOUNTER 2025-06-29 15:10 | Emergency (ER) | payer SELFPAY ==
[2025-06-29] MEDS: Ondansetron 4 MG Tab.DIS PO ONE (17:26)
[2025-06-29] MEDS: Acetaminophen/oxyCODONE 325-5 MG Tab PO ONE (17:28)
[2025-06-29 17:36] VITALS: BP 131/87; PULSE 89
== END 2025-06-29 17:30 | disposition home or self-care (01) ==
LOC: JD.ED 15:10
DX: K57.32 Diverticulitis of large intestine without perforation or abscess without bleeding (principal); Z88.8 Allergy status to other drugs, medicaments and biological substances; Z79.899 Other long term (current) drug therapy; Z86.16 Personal history of COVID-19; Z87.891 Personal history of nicotine dependence
CPT/HCPCS: 99283; A9270-GY